=== PATIENT | male | born 1965 | race Hispanic/Latino ===

== ENCOUNTER 2017-11-06 18:47 | Emergency (ER) | payer MEDICARE, MEDICAID ==
--- NOTE | 2017-11-06 20:37 | RAD ---
RIGHT ANKLE THREE VIEWS 11/06/17 COMPARISON: None. HISTORY: Fall, trauma, pain. FINDINGS: The talar dome and ankle mortise appear intact. No displaced fracture or dislocation. There is enthes ophyte formation at the origin of the plantar aponeurosis and insertion of Achilles tendon. IMPRESSION: No acute findings. POS: ANGELITO
--- NOTE | 2017-11-06 20:38 | RAD ---
THREE VIEWS OF THE LEFT ANKLE 11/06/17 COMPARISON: None. HISTORY: Fall, trauma, pain. FINDINGS: There is atherosclerotic calcification along the dorsal aspect of the foot. No acute fracture or evid ence of dislocation is seen. IMPRESSION: No acute findings. POS: SANTINO
== END 2017-11-06 20:55 | disposition home or self-care (01) ==
LOC: ERS 18:47
DX: M25.572 Pain in left ankle and joints of left foot (principal); M25.571 Pain in right ankle and joints of right foot; Q90.9 Down syndrome, unspecified; E11.9 Type 2 diabetes mellitus without complications; E78.00 Pure hypercholesterolemia, unspecified; I10 Essential (primary) hypertension; Z79.4 Long term (current) use of insulin; Z79.899 Other long term (current) drug therapy; W01.0XXA Fall on same level from slipping, tripping and stumbling without subsequent striking against object, initial encounter; Y92.59 Other trade areas as the place of occurrence of the external cause

== ENCOUNTER 2020-01-23 07:18 | Day surgery (SDC) | payer MEDICARE, MEDICAID ==
[~2020-01-23 07:18] MED LIST: EPINEPHrine 0.3 MG in Ophthalmic Irrigation Solution 500 ML IRR SCH; Fentanyl 100 MCG/2 ML VIAL ONE; Midazolam HCl 2 mg/2 ml Vial ONE
[2020-01-23] MEDS ORDERED: Cyclopentolate 1% Opth Drop 2 ML BOT ONE (07:56)
[2020-01-23] MEDS ORDERED: Phenylephrine 2.5% Ophth Soln 5 ML BOT ONE (07:56)
[2020-01-23] MEDS ORDERED: Lidocaine 4% PF 5 ML AMP ONE (09:47)
[2020-01-23] MEDS ORDERED: Ondansetron PF 4 MG/2 ML Vial ONE (09:47)
[2020-01-23] MEDS ORDERED: Triamcinolone 40 MG/ML VIAL ONE (09:47)
[2020-01-23] MEDS ORDERED: CEFAZOLIN 1 GM VIAL ONE (09:47)
[2020-01-23] MEDS ORDERED: Metoclopramide HCl 10 MG/2 ML VIAL ONE (09:47)
[2020-01-23] MEDS ORDERED: Lidocaine 1% PF 5 ML VIAL ONE ×2 (09:47)
[2020-01-23] MEDS ORDERED: Maxitrol 0.1% Opth Oint 3.5 GM TUBE ONE (09:47)
[2020-01-23] MEDS ORDERED: Bupivacaine PF 0.75% SDV 10 ML ONE (09:47)
[2020-01-23] MEDS ORDERED: PROPOFOL 200 MG/20 ML VIAL ONE (09:47)
--- NOTE | 2020-01-23 11:55 | OP ---
DATE OF PROCEDURE: 01/23/2020 PRINCIPAL PREOPERATIVE DIAGNOSES: 1. Vitreous hemorrhage, left eye. 2. Proliferative diabetic retinopathy, left eye. ESTIMATED BLOOD LOSS: None. SPECIMENS REMOVED: None. COMPLICATIONS: None. ANESTHESIA: MAC with subtenon's block. PROCEDURES PERFORMED: 1. A 25-gauge pars plana vitrectomy, left eye. 2. Panretinal photocoagulation, left eye. DESCRIPTION OF PROCEDURE: The patient was identified in the preoperative holding area, where the correct eye being the left eye was marked for surgery. The patient was taken to the operating room, where MAC anesthesia was induced. The left eye was prepped and draped in the usual sterile ophthalmic fashion for surgery. A wire-clip lid speculum was placed. A standard 25-gauge pars vitrectomy platform was fashioned with trocars placed approximately 3.5 mm from the limbus. The infusion was noted within the vitreous cavity prior to being turned on to infusion pressure of 30 mmHg. The light pipe and microvitrector were introduced in the eye under visualization of the BIOM viewing system. A significant vitreous hemorrhage was noted obscuring adequate view of the fundus. A careful core and peripheral shave vitrectomy were performed, which allowed for progressive clearance of the vitreous hemorrhage, improve visualization in the fundus. Following completion of clearance of the vitreous hemorrhage, significant ischemic vessels were noted throughout the periphery. Using the endolaser panretinal photocoagulation was placed in typical fashion with sparing of the 3 and 9 o'clock meridians. The cannulas were sequentially removed. All sclerotomies were noted to be watertight. Subtenon's block was administered inferonasally. The block consisted of 1:1 ratio of 4% lidocaine 0.75% Marcaine. A total of 5 mL was administered. The wire-clip lid speculum was removed, followed by application of TobraDex ophthalmic ointment and a light patch and shield. The patient tolerated the procedure well and was taken to the outpatient recovery in good condition. Job ID: [id number]
== END 2020-01-23 11:45 | disposition home or self-care (01) ==
LOC: SDC 07:18
PROVIDERS: ATTEND Ophthalmology Retina Specialist
PROC: 08T53ZZ Resection of Left Vitreous, Percutaneous Approach (ICD-10-PCS; principal; 2020-01-23)
PROC: 08QF3ZZ Repair Left Retina, Percutaneous Approach (ICD-10-PCS; 2020-01-23)
DX: H43.12 Vitreous hemorrhage, left eye (principal); E11.3592 Type 2 diabetes mellitus with proliferative diabetic retinopathy without macular edema, left eye; Z79.4 Long term (current) use of insulin; Z79.899 Other long term (current) drug therapy
CPT/HCPCS: 36416; J0171; J0690; J2001; J2250; J2405; J2704; J2765; J3010; J3301; J3490

== ENCOUNTER 2021-12-16 09:09 | Inpatient (IN) | payer MEDICARE, MEDICAID ==
[2021-12-16 10:11] LABS: #Monocytes 0.3 thou/uL (0.11-0.59); #Neutrophils 4.5 thou/uL (1.40-6.50); %Basophils 0.2 % (0.0-1.0); %Eosinophils 0.1 % (0.0-10.0); %Lymphocytes 17.1 % (21.0-51.0); %Monocytes 5.8 % (0.0-10.0); %Neutrophils 76.8 % (42.0-75.0); Hemoglobin 17.8 g/dL (14.0-18.0); Mean Corpuscular HGB CONC 32.4 g/dL (32.0-36.0); Mean Corpuscular Hemoglobin 32.5 pg (27.0-31.0); Mean Platelet Volume 9.4 fL (7.4-10.4); Platelet Count 125 thou/uL (130-400); RBC Distribution Width 12.1 % (11.5-14.5); Red Blood Cell (RBC) Count 5.47 mill/uL (4.70-6.10); White Blood Cell (WBC) Count 5.9 thou/uL (4.8-10.8)
[2021-12-16 10:31] LABS: ALT (SGPT) 26 U/L (8-55); AST (SGOT) 40 U/L (5-34); Albumin 3.3 g/dL (3.5-5.0); Alkaline Phosphatase 62 U/L (40-110); Anion Gap 18 mmol/L (10-20); BUN (Urea Nitrogen) 23 mg/dL (8.4-25.7); Bilirubin, Total 1.5 mg/dL (0.2-1.2); Calc. Creatinine Clearance 0 mL/min (70-130); Calcium 9.1 mg/dL (7.8-10.44); Carbon Dioxide 25 mmol/L (22-29); Chloride 101 mmol/L (98-107); Globulin 3.9 g/dL (2.4-3.5); Glucose 342 mg/dL (70-105); Potassium 4.6 mmol/L (3.5-5.1); Protein, Total 7.2 g/dL (6.0-8.3); Sodium 139 mmol/L (136-145)
[2021-12-16] MEDS ORDERED: Azithromycin 500 MG VIAL ONE ×2 (13:41→14:09)
[2021-12-16] MEDS ORDERED: cefTRIAXone\\ROCEPHIN 2 GM VIAL ONE (13:41)
[2021-12-16] MEDS ORDERED: Ipratropium Oral Inhaler INH SCH (14:00)
[2021-12-16] MEDS ORDERED: Albuterol 200 PUFF (6.7GM INHALER) ONE (14:24)
[2021-12-16] MEDS ORDERED: Acetaminophen 325 MG TAB PO PRN (15:16)
[2021-12-16] MEDS ORDERED: Ondansetron PF 4 MG/2 ML Vial IVP PRN (15:16)
[2021-12-16] MEDS ORDERED: Ondansetron ODT 4 MG TAB PO PRN (15:16)
[2021-12-16] MEDS ORDERED: Dextrose 50% Abboject 50 ML SYRINGE SLOW IVP PRN (15:25)
[2021-12-16] MEDS ORDERED: Dextrose 5% in Water 1,000 ML IV PRN (15:25)
[2021-12-16] MEDS ORDERED: Guaifenesin DM 100-10/5 ML UDCUP PO PRN (15:26)
[2021-12-16 17:29] VITALS: BMI 30.5
[2021-12-16] MEDS: Sodium Chloride 0.9% 1,000 ML IV SCH (17:44)
[2021-12-16] MEDS: HumaLOG 300 UNITS/3 ML VIAL SC PRN (18:29)
[2021-12-16] MEDS: Benzonatate 100 MG CAP PO SCH (20:11)
[2021-12-17] MEDS: HumaLOG 300 UNITS/3 ML VIAL SC PRN (05:21)
[2021-12-17] MEDS: Sodium Chloride 0.9% 1,000 ML IV SCH (05:21)
[2021-12-17 08:11] LABS: #Monocytes 0.3 thou/uL (0.11-0.59); #Neutrophils 3.5 thou/uL (1.40-6.50); %Basophils 0.3 % (0.0-1.0); %Eosinophils 0.9 % (0.0-10.0); %Lymphocytes 20.6 % (21.0-51.0); %Monocytes 5.7 % (0.0-10.0); %Neutrophils 72.5 % (42.0-75.0); Hemoglobin 15.3 g/dL (14.0-18.0); Mean Corpuscular HGB CONC 32.7 g/dL (32.0-36.0); Mean Corpuscular Hemoglobin 32.5 pg (27.0-31.0); Mean Corpuscular Volume 99.3 fL (78.0-98.0); Mean Platelet Volume 9.1 fL (7.4-10.4); Platelet Count 111 thou/uL (130-400); White Blood Cell (WBC) Count 4.8 thou/uL (4.8-10.8)
[2021-12-17 08:21] LABS: Anion Gap 12 mmol/L (10-20); BUN (Urea Nitrogen) 17 mg/dL (8.4-25.7); Calc. Creatinine Clearance 81 mL/min (70-130); Calcium 8.5 mg/dL (7.8-10.44); Carbon Dioxide 24 mmol/L (22-29); Chloride 106 mmol/L (98-107); Glucose 243 mg/dL (70-105); Potassium 4.2 mmol/L (3.5-5.1); Sodium 138 mmol/L (136-145)
[2021-12-17] MEDS: Benzonatate 100 MG CAP PO SCH ×3 (08:49→20:44)
[2021-12-17 09:46] LABS: SARS-CoV-2 PCR by NAA DETECTED (NotDetected)
[2021-12-17] MEDS ORDERED: Lantus 1000 UNITS/10 ML VIAL SC SCH ×2 (10:15→21:00)
[2021-12-17] MEDS ORDERED: Dexamethasone 4 mg/ml Vial SLOW IVP SCH (10:15)
[2021-12-17] MEDS: Insulin Regular 300 UNITS/3 ML VIAL SC PRN ×2 (12:27→17:06)
[2021-12-17] MEDS ORDERED: FLU VACC QS2021-22(6MOS UP)/PF 60 MCG/0.5 ML SYRINGE IM ONE (18:00)
[2021-12-17 20:02] VITALS: TEMP 97.3
[2021-12-17] MEDS: HumaLOG 300 UNITS/3 ML VIAL SC SCH (20:44)
[2021-12-17] MEDS ORDERED: Enoxaparin Sodium 40 MG/0.4 ML SYRINGE SC SCH (21:00)
[2021-12-18] MEDS: Insulin Regular 300 UNITS/3 ML VIAL SC PRN (05:14)
[2021-12-18 08:48] VITALS: BP 129/83
[2021-12-18] MEDS: Benzonatate 100 MG CAP PO SCH (08:56)
[2021-12-18] MEDS: HumaLOG 300 UNITS/3 ML VIAL SC SCH (08:59)
[2021-12-18] MEDS ORDERED: Zinc Sulfate 220 MG CAP PO SCH (09:00)
[2021-12-18] MEDS ORDERED: Ascorbic Acid 500 mg Chewable Tablet PO SCH (09:00)
[2021-12-18] MEDS ORDERED: Dexamethasone 4 mg/ml Vial SLOW IVP SCH (09:00)
[2021-12-18] MEDS ORDERED: Cholecalciferol (Vitamin D3) 400 UNITS TAB PO SCH (09:00)
[2021-12-18] MEDS ORDERED: predniSONE 20 MG TAB PO SCH (09:15)
== END 2021-12-18 11:45 | disposition home or self-care (01) | DRG 177 ==
LOC: ERS 09:09 → ERHOLD 14:07 → T4-A 16:54
PROVIDERS: ADMIT Internal Medicine; ATTEND Family Medicine
PROC: 8E0ZXY6 Isolation (ICD-10-PCS; principal; 2021-12-16)
DX: U07.1 COVID-19 (principal); J12.82 Pneumonia due to coronavirus disease 2019; J96.01 Acute respiratory failure with hypoxia; N17.9 Acute kidney failure, unspecified; E11.65 Type 2 diabetes mellitus with hyperglycemia; I10 Essential (primary) hypertension; E11.22 Type 2 diabetes mellitus with diabetic chronic kidney disease; N18.30 Chronic kidney disease, stage 3 unspecified; Q90.9 Down syndrome, unspecified; Z79.4 Long term (current) use of insulin
CPT/HCPCS: 36415; 36416; 71045; 80048; 80053; 84484; 85025; 93005; J0456; J0696; J1100; J1650; J1815; J7050; J7512; U0003; U0005